=== PATIENT | female | born 1960 | race Asian ===

== ENCOUNTER 2020-02-08 09:08 | Emergency (ER) | payer OTHER ==
[~2020-02-08] VITALS: Ht 172.7 cm; Wt 77.1 kg
[2020-02-08 09:13] VITALS: Ht 172.7 cm; Wt 77.1 kg
[2020-02-08 10:21] VITALS: BP 124/75
== END 2020-02-08 10:21 | disposition home or self-care (01) ==
LOC: EDBD 09:08 → ED 09:08
DX: R07.89 Other chest pain (principal); F43.20 Adjustment disorder, unspecified